=== PATIENT | male | born 1925 | race Caucasian/White ===

== ENCOUNTER 2017-03-14 15:56 | Emergency (ER) | payer MEDICARE, OTHER ==
[~2017-03-14] VITALS: Ht 170.2 cm; Wt 72.6 kg
--- OUTSIDE RECORDS SUMMARY | ~2017-03-14 | XMS | Clinical Summary ---
Demographics + + + | Address | [address] | | | [place] [address] | + + + | Home Phone | | + + + | Preferred Language | Unknown | + + + | Marital Status | Single | + + + | Roman Catholic Affiliation | Unknown | + + + | Race | Unknown | + + + | Ethnic Group | Other Race | + + + Author + + + | Author | [facility] | + + + | Organization | [facility] | + + + | Address | Unknown | + + + | Phone | Unavailable | + + + Care Team Providers + +------+ + | Care Talent Acquisition Director Name | Role | Phone | + +------+ + PP | Unavailable | + +------+ + Source Comments [facility] is fully live on both [facility] and [facility] Allergies Not on File Current Medications Not on file Active Problems Not on file Social History + +-------+ +--------+------+ | Tobacco Use | Types | Packs/Day | Years | Date | | | | | Used | | + +-------+ +--------+------+ | Never Assessed | | | | | + +-------+ +--------+------+ + + + | Sex Assigned at | Date Recorded | | | | + + + | Not on file | | + + + Plan of Treatment + + + + + | Health Maintenance | Due Date | Last Done | Comments | + + + + + | INFLUENZA VACCINE | | | | | (FLU SHOT) | 7 | | | + + + + + Results Not on filefrom Last 3 Months"
--- OUTSIDE RECORDS SUMMARY | ~2017-03-14 | XMS | Clinical Summary ---
Demographics + + + | Address | [address] | | | [place] [address] | + + + | Home Phone | | + + + | Preferred Language | Unknown | + + + | Marital Status | Single | + + + | Congregation Affiliation | Unknown | + + + | Race | Unknown | + + + | Ethnic Group | Other Race | + + + Author + + + | Author | [facility] | + + + | Organization | [facility] | + + + | Address | Unknown | + + + | Phone | Unavailable | + + + Care Team Providers + +------+ + | Care Isotope Technician Name | Role | Phone | + +------+ + PP | Unavailable | + +------+ + Source Comments VARUN is fully live on both [facility] and [facility] Allergies Not on File Current Medications Not [...]
[~2017-03-14 15:56] MED LIST: AMIODARONE HCL200 MG PO; AMLODIPINE BESY10 MG PO; AMLODIPINE BESYL5 MG PO; ASPIRIN EC325 MG PO; ASPIRIN EC81 MG PO; ASPIRIN81 MG PO; ATORVASTATIN CA20 MG PO; COZAAR50 MG PO; CRESTOR10 MG PO; CRESTOR20 MG PO; CRESTOR5 MG PO; DOCUSATE SODIU100 MG PO; ENALAPRIL MALEA10 MG PO; ENALAPRIL MALEAT5 MG PO; FLOMAX0.4 MG PO; GLUCOSAMINE CH1 EAC2 PO; HYDROCHLOROTH12.5 M1 PO; HYDROCHLOROTHIA25 MG PO; IPRATROPIUM BRO15 ML NAS; LEVOTHYROXINE25 MCG PO; LEVOTHYROXINE50 MCG PO; METOPROLOL SUCC25 MG PO; METOPROLOL TAR100 MG PO; METOPROLOL TART50 MG PO; MILK OF MA400 MG/5 M PO; MULTIVITAMINS1 EAC7 PO; PERCOCET 5-3251 EACH PO; PRAVASTATIN SOD20 MG PO; TAMSULOSIN HCL0.4 MG PO; TOPROL XL25 MG PO; VITAMIN D31000 UNIT PO
--- NOTE | 2017-03-15 13:07 | EKG ---
[facility] [address] [place] [address] Signed Normal sinus rhythm Nonspecific intraventricular block T wave abnormality, consider inferior ischemia Abnormal ECG When compared with ECG of 14-JUN-2016 20:25, premature atrial complexes are no longer present QRS axis shifted right T wave inversion now evident in Inferior leads Confirmed by CHAIM SANTIAGO MD ([id number]) on 03/15/2017 1:07:12 PM Electronically Signed By: CHAIM SANTIAGO MD 03/15/17 1307 PATIENT NAME: ROBSON ZARCO Electrocardiogram DATE OF : [birth year] PHYSICIAN: CHAIM SANTIAGO MD REPORT #: [id number] REPORT IS CONFIDENTIAL AND NOT TO BE RELEASED WITHOUT AUTHORIZATION
== END 2017-03-14 17:25 | disposition home or self-care (01) ==
LOC: ED 15:56
DX: S61.012A Laceration without foreign body of left thumb without damage to nail, initial encounter (principal); S61.411A Laceration without foreign body of right hand, initial encounter; R55 Syncope and collapse; I10 Essential (primary) hypertension; Z23 Encounter for immunization; W19.XXXA Unspecified fall, initial encounter; Y92.481 Parking lot as the place of occurrence of the external cause
CPT/HCPCS: 80053; 84484; 85025; 90471; 90715; 93005; 93010; 99284